=== PATIENT | male | born 1990 | race Caucasian/White ===

== ENCOUNTER 2024-01-30 21:50 | Emergency (ER) | payer OTHER, SELFPAY ==
[2024-01-30 21:54] VITALS: BP 118/77; PULSE 88; RESP 18; O2SAT 98
--- NOTE | 2024-01-30 22:13 | CRLHL7_ITS ---
For Patients: As a result of the Century Cures Act, medical imaging exams and procedure reports are released immediately into your electronic medical record. You may view this report before your referring provider. If you have questions, please contact your health care provider. INDICATION: Left testicle pain. COMPARISON: None. TECHNIQUE: Dodge scale imaging was performed of the scrotum. Color Doppler and spectral Doppler analysis was performed of the testes. FINDINGS: Testes: The right testis measures 4.3 x 2.3 x 2.9 cm and the left testis measures 4.4 x 2.4 x 2.7 cm. The testes demonstrate presence of arterial and venous blood flow on color Doppler and spectral Doppler analysis. The testes have uniform echogenicity without evidence of a suspicious mass. There is increased blood flow to the left testis. Epididymis: The right epididymis appears normal. There is increased blood flow in the left epididymal body and tail. Other: Small left hydrocele. No significant varicocele. IMPRESSION: 1. Hypervascular left testis and epididymis compatible with epididymo-orchitis. 2. Small left hydrocele. Dictated by Maria D Vale MD @ 01/31/2024 12:53:06 AM (Electronically Signed)
--- NOTE | 2024-01-30 22:16 | ED_ITS ---
HPI - General Adult General Chief complaint: Groin Pain Stated complaint: testicular pain Time Seen by Provider: 01/30/24 21:51 History of Present Illness HPI narrative: 33-year-old male presents the emergency department after hours for evaluation of left testicular pain that has been present since awakening at 8:00 a.m. approximately 14 hours ago. No injury or trauma. Reports that he did have an injury about 2 years ago and he followed up in the clinic about a week after the injury and was told he likely had a torn epididymis. An ultrasound was ordered but since the patient's pain was improving and he had no significant worsening, he did not follow up and have the ultrasound performed. He has no difficulty urinating, denies any chance of STDs. Pain is achy in nature, worsening throughout the day as he stands. Denies any swelling, history of hernia or prior surgery. Has not tried any Tylenol or ibuprofen. Past medical history benign, no major long-term health problems. No long-term medications or allergies. ROS is notable for the genital symptoms as above. Denies urinary, GI, generalized, skin or other musculoskeletal changes. Related Data Previous Rx's ?Medication ?Instructions ?Recorded levofloxacin 500 mg tablet 500 mg PO HS 10 days #10 tabs 01/31/24 Allergies Allergy/AdvReac Type Severity Reaction Status Date / Time seasonal allergies Allergy Mild Uncoded 01/30/24 22:15 [facility] Medical History Acute Lyme disease ?A69.20 - Lyme disease, unspecified (ICD-10) Social History Smoking Status: Never smoker Second hand tobacco smoke exposure: No How often do you have a drink containing alcohol: never AUDIT-C Alcohol total score: 0 Non-prescribed substance use: denies use Little interest or pleasure in doing things: not at all Feeling down, depressed, or hopeless: not at all Exam Const: Vital Signs, click to edit/add: Vital Signs - 24 hr 01/30/24 21:54 01/30/24 22:22 01/31/24 00:04 Temperature 98.0 F 98.0 F Pulse Rate [Pulse Oximeter] 88 Respiratory Rate 18 Blood Pressure [Ri ght Upper Arm] 118/77 Pulse Oximetry 98 Oxygen Delivery Me thod Room Air 01/31/24 00:19 Temperature 98.0 F Pulse Rate [Pulse Oximeter] 84 Respiratory Rate 18 Blood Pressure [Ri t Upper Arm] 121/74 Pulse Oximetry 98 Oxygen Delivery Me thod Room Air Documenting provider has reviewed patient's vital signs: yes Common normals: no apparent distress and alert General appearance: cooperative and comfortable HENMT: Common normals: normocephalic and oropharynx normal Head and scalp: normocephalic Eye: Common normals: conjunctivae normal General eye: normal appearance of both eyes Conjunctiva: conjunctiva(e) normal Neck & C-Spine: General: normal visual inspection Resp: Common normals: normal respiratory effort Effort & inspection: able to speak in complete sentences : Other: Director Part offered, patient declines. Scrotum and penis appear grossly normal. Palpation of right testicle shows normal size, contour. Epididymis is mildly tender on that side and he is a bit squeamish on exam. No hernia, normal inguinal canal. Left side has mild tenderness to palpation of the testicle and more so the epididymis area. There is no significant swelling or deformity of the testicle. The epididymis area is slightly swollen and tender to the touch.. He does not tolerate inguinal exam but I do not appreciate any obvious hernia or swelling. Overlying skin of the scrotum is normal. Cremasteric reflex is normal and left testicle moves normally. Extremity: Common normals: normal to inspection Neuro: Sensorium/orientation: alert Speech: speech normal Motor exam: no movement abnormalities noted Psych: Common normals: speech normal Activity/motor behavior: appropriate eye contact Speech: normal speech Memory/cognition: memory grossly intact Insight: insight good Judgement: judgment good Skin: Common normals: no rashes or lesions noted General skin exam: no rashes or lesions noted Course Course ED Course: 33-year-old male with left testicular area pain, low suspicion for torsion, more likely epididymitis. urine infection, hernia cannot be excluded. Ultrasound recommended. Will give Tylenol 1000 mg p.o. x1 and await ultrasound findings. Reevaluation(s) Time of Reevaluation #1: 01:03 Reevaluation #1: It took quite a while to get our ultrasound results back. This showed a small hydrocele but also epididymal orchitis. Will start treatment with level flox acillin 1st dose here in the ED and then additional 10 day supply sent pharmacy. Counseled this is likely inflammatory and is probably related to his old injury. Typical alarm symptoms were reviewed. If not improving in 7 days, would recommend primary care follow-up and Urology referral. Tight-fitting underwear recommended, management for future episodes discussed as well. Vital Signs Vital signs: Initial Vital Signs Pulse Rate 88 01/30/24 21:54 Respiratory Rate 18 01/30/24 21:54 Blood Pressure 118/77 01/30/24 21:54 Blood Pressure Mean 90 01/30/24 21:54 Blood Pressure Position Sitting 01/30/24 21:54 Pulse Oximetry 98 01/30/24 21:54 Oxygen Delivery Method Room Air 01/30/24 21:54 Vital Signs Pulse Rate 88 01/30/24 21:54 Respiratory Rate 18 01/30/24 21:54 Blood Pressure 118/77 01/30/24 21:54 Pulse Oximetry 98 01/30/24 21:54 Oxygen Delivery Method Room Air 01/30/24 21:54 Temperature 98.0 F 01/31/24 00:19 Pulse Rate 84 01/31/24 00:19 Respiratory Rate 18 01/31/24 00:19 Blood Pressure 121/74 01/31/24 00:19 Pulse Oximetry 98 01/31/24 00:19 Oxygen Delivery Method Room Air 01/31/24 00:19 Medications Administered Medications: Generic Name Dose Route Start Last Admin Trade Name Freq PRN Reason Stop Dose Admin Levofloxacin 750 mg 01/31/24 00:54 01/31/24 01:00 Levofloxacin 750 Mg Tablet PO 01/31/24 00:55 750 mg ONCE ONE Administration Discontinued Medications Generic Name Dose Route Start Last Admin Trade Name Freq PRN Reason Stop Dose Admin Acetaminophen 1,000 mg 01/30/24 22:13 01/30/24 22:22 Acetaminophen 500 Mg Tablet PO 01/30/24 22:14 1,000 mg ONCE ONE Administration Medical Decision Making Lab Data Lab results reviewed: Yes I reviewed the patient's lab results Lab results narrative: Well-hydrated, urinalysis not suspicious for infection Labs: Lab Results 01/30/24 Range/Units 22:15 Urine Color Yellow (Yellow) Urine Appearance Clear (Clear) Urine pH 5.5 (5.0-8.5) Ur Specific Buckhorn <= 1.005 (1.000-1.030) Urine Protein Negative (Negative) Urine Glucose (UA) Negative (Negative) Urine Ketones Negative (Negative) Urine Blood Negative (Negative) Urine Nitrite Negative (Negative) Urine Bilirubin Negative (Negative) Urine Urobilinogen 0.2 (0.2-1.0) Ur Leukocyte Esterase Negative (Negative) Imaging Data Scrotal ultrasound: Attestation: I have reviewed the pertinent imaging results. Discharge Plan Discharge Clinical Impression: Acute epididymo-orchitis, Hydrocele Patient Disposition: Home, Self-Care Condition: Stable Instructions: Epididymo-Orchitis (ED) Additional Instructions: As we discussed, there are no signs of tumors or lack of blood flow to the testicles. This is good news. You do have a hydrocele which is a enlarged veins sac on top of the testicle. These are common after minor injuries like the 1 you described a couple of years ago. Unfortunately, they tend to recur. The increased pressure in the vein can back up and cause swelling and inflammation in the testicle which is what has happened tonight. As we discussed, there is no way to tell at this is infection or inflammation. Because of this, we do treat with antibiotics for 7-10 days. I recommend anti- inflammatory medicine like ibuprofen 600 mg every 6 hours as needed. He will let me know that this tends to upset your stomach too much. Taking those medications as certainly not a requirement but if the pain is bothersome, you ar e welcome to do so. Tylenol 1000 mg every 6 hours would not upset your stomach but it may not decrease the inflammation as readily as ibuprofen, Aleve or other NSAIDs would. If symptoms are not improving in a week, I would recommend you follow-up with your primary care provider and that they submit a referral to a urologist which is a specialist in this area. Prolonged standing, heat and small trauma scan increase the inflammation in the hydrocele, making the more likely to give you problems again in the future. If you do have frequent spells like this, surgery can sometimes be recommended to remove the hydrocele but is often not necessary. You may return to work as usual and have no restrictions at this time. supervisor cell operation your antibiotics and continue taking these at bedtime once daily until course of treatment is completed. Wearing tight-fitting underwear to support the scrotum can be helpful as well. Activity Level: No Restrictions Discharge Diet: Regular Prescriptions: New levofloxacin 500 mg tablet 500 mg PO HS 10 Days Qty: 10 0RF Follow Up/Referrals: Yannick Mijares MD [Primary Care Provider] - Stand Alone Forms: [employer] Info Instructions
[2024-01-30 22:21] LABS: Appearance Urine Clear (Clear); Bilirubin Urine Negative (Negative); Blood Urine Negative (Negative); Color Urine Yellow (Yellow); Glucose Urine Negative (Negative); Ketones Urine Negative (Negative); Leukocyte Esterase Urine Negative (Negative); Nitrite Urine Negative (Negative); Protein Urine Negative (Negative); Specific Gravity Urine <= 1.005 (1.000-1.030); Urobilinogen Urine 0.2 (0.2-1.0); pH Urine 5.5 (5.0-8.5)
[2024-01-30 22:22] VITALS: TEMP 36.7
[2024-01-30] MEDS: ACETAMINOPHEN 500 MG TABLET 1000 MG PO (22:22)
--- OUTSIDE RECORDS SUMMARY | 2024-01-30 23:23 | XMS_ITS | Clinical Summary ---
Author Organization [facility] Address [place], [place] [address] Care Team Providers Care Sailing Master Name Role Phone Saturnino Aguilar MD Primary Care Provider [phone] Allergies No known active allergies Medications Medication Sig Dispensed Refills Start Date End Date Status omeprazole (PRILOSEC) 20 mg capsuleIndications:G ERD (gastroesophageal reflux disease) Take 1 capsule by mouth once daily before a meal. 100 capsule 1 05/15/2012 Active Immunizations Name Administration Dates Next Due Meningococcal Vaccine (Menactra) 02/23/2005 Tdap 02/03/2005 Social History Tobacco Use Types Packs/Day Years Used Date Smoking Tobacco: Every Day Cigarettes Smokeless Tobacco: Former Chew Tobacco Cessation:Ready to Q uit: Yes; Counseling Given: Yes Comments:1/2 ppd or less per pt Alcohol Use Standard Drinks/Week Comments No 0 (1 standard drink = 0.6 oz pur e alcohol) Sex and Gender Information Value Date Recorded Sex Assigned at Not on file Gender Identity Not on file Sexual Orientation Not on file Obstetrics History Last Filed Vital Signs Vital Sign Reading Time Taken Comments Blood Pressure 139/90 01/03/2023 1:56 PM CDT Pulse 96 01/03/2023 1:56 PM CDT Temperature 37.3 ??C (99.1 ??F) 05/15/2012 11:[address] Respiratory Rate - - Oxygen Saturation 97% 01/03/2023 1:56 PM CDT Inhaled Oxygen Concentration - - Weight 108 kg (238 lb 3.2 oz) 01/03/2023 1:56 PM CDT Height - - Body Mass Index - - Plan of Treatment Upcoming Encounters Date Type Department Care Team (Late st Contact Info) Description 03/06/2024 2:45 PM CDT Office Visit [facility] [address] [place] [address] Cory Thompson, DPM [address] [place] [address] Health Maintenance Due Date Last Done Comments Depression screening for age 12+ 2004 HIV for age 15-65 02/09/2007 BMI (ht and wt on same day) for age 18+ 02/09/2010 Hepatitis C screening for ag e 18-79 02/09/2010 Tetanus booster 02/03/2015 02/03/2005 COVID-19 vaccine series ( season) 2023 03/15/2021 Influenza for age 9-49 03/02/2024 Tdap Completed 02/03/2005 Pneumococcal series for age 6-64 Aged Out No longer eligible based on patient's age to complete this topic Care Teams Sailing Master Relationship Specialty Start Date End Date Saturnino Aguilar MD [address] [place] [address] PCP - General 07/13/06
[2024-01-31 00:04] VITALS: TEMP 36.7
[2024-01-31 00:19] VITALS: BP 121/74; PULSE 84; RESP 18; TEMP 36.7; O2SAT 98
[2024-01-31] MEDS: levoFLOXacin 750 MG TABLET PO (01:00)
[2024-01-31 01:06] VITALS: BP 121/74; PULSE 84; RESP 18; TEMP 36.7
== END 2024-01-31 01:06 | disposition home or self-care (01) ==
PROVIDERS: Emergency Provider Family Medicine; PCP Family Medicine
DX: N45.3 Epididymo-orchitis (principal)
CPT/HCPCS: 76870; 81003; 93976; 99283; 99284; A9270

== ENCOUNTER 2024-03-12 19:53 | Emergency (ER) | payer OTHER, SELFPAY ==
[2024-03-12 20:05] VITALS: BP 146/80; PULSE 70; RESP 16; TEMP 37.3; O2SAT 97; BMI 33.0
--- NOTE | 2024-03-12 20:10 | CRLHL7_ITS ---
For Patients: As a result of the Cures Act, medical imaging exams and procedure reports are released immediately into your electronic medical record. You may view this report before your referring provider. If you have questions, please contact your health care provider. Indication: Trauma. Technique: Left hand 3 views. Comparison: None. Findings/Impression: Bones: Minimally distracted fracture in the anterior base of the left 4th finger middle phalanx visualized on the lateral image. No other osseous abnormality. Joint spaces: Unremarkable. Soft tissues: Moderate swelling. Dictated by Tyree aSrgent MD @ 03/12/2024 9:15:12 PM (Electronically Signed)
--- NOTE | 2024-03-12 21:18 | ED_ITS ---
HPI - Extremity Injury (Upper) General Time Seen by Provider: 21:19 Date Seen: 03/12/24 Chief Complaint: Extremity Pain/Injury, Upper Stated Complaint: possible broken finger, L hand Time Seen by Provider: 03/12/24 20:57 Source: patient and RN notes reviewed Mode of arrival: ambulatory Limitations: no limitations History of Present Illness HPI narrative: Patient is coming in with left 4th finger pain along the middle of the finger. He accidentally hit the chair at the dinner table. He was going to swat the dog away that was sniffing the kids dinner plates. He accidentally caught the chair with his finger. He did remove his ring. There is swelling, it is painful but denies any loss of sensation. 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 MD complaint: injury to: left and finger (Ring finger) Related Data Home Medications ?Medication ?Instructions ?Recorded ?Confirmed No Known Home Medications 03/12/24 03/12/24 Allergies Allergy/AdvReac Type Severity Reaction Status Date / Time seasonal allergies Allergy Mild Uncoded 01/30/24 22:15 Review of Systems Narrative: As per HPI. PFSH PFS Medical History Acute Lyme disease ?A69.20 - Lyme disease, unspecified (ICD-10) Social History Smoking Status: Never smoker Second hand tobacco smoke exposure: No How often do you have a drink containing alcohol: never AUDIT-C Alcohol total score: 0 Non-prescribed substance use: denies use Little interest or pleasure in doing things: not at all Feeling down, depressed, or hopeless: not at all Exam Const: Vital Signs, click to edit/add: Vital Signs - 24 hr 03/12/24 20:05 Temperature 99.2 F Pulse Rate [Pulse Oximeter] 70 Respiratory Rate 16 Blood Pressure [Ri ght Upper Arm] 146/80 H Pulse Oximetry 97 Oxygen Delivery Me thod Room Air Patient is alert, interactive, no apparent distress. He was seen in triage as his x-ray that was ordered by nursing staff is back. His left 4th finger is swollen in the middle portion, still is able to mobilize but has limits of flexion due to swelling and pain, is in full extension baseline. Distal neurovascular is intact. There is no open wound. His and swelling center around the proximal interphalangeal joint. Documenting provider has reviewed patient's vital signs: yes Course Course ED Course: Nursing staff ordered an x-ray on this patient during triage process which was appropriate. Due to the volume in the acuity in the ER, this did facilitate patient not waiting as long. I am able to review with him that there is a proximal middle phalanx fracture. Looks to be along the palmar surface on my visualization. Patient was placed in a 4-1/2 inch foam curved finger splint. This was taped on. Vital Signs Vital signs: Initial Vital Signs Temperature 99.2 F 03/12/24 20:05 Temperature Source Temporal Artery Scan 03/12/24 20:05 Pulse Rate 70 03/12/24 20:05 Respiratory Rate 16 03/12/24 20:05 Blood Pressure 146/80 H 03/12/24 20:05 Blood Pressure Mean 102 03/12/24 20:05 Blood Pressure Position Sitting 03/12/24 20:05 Pulse Oximetry 97 03/12/24 20:05 Oxygen Delivery Method Room Air 03/12/24 20:05 Vital Signs Temperature 99.2 F 03/12/24 20:05 Pulse Rate 70 03/12/24 20:05 Respiratory Rate 16 03/12/24 20:05 Blood Pressure 146/80 H 03/12/24 20:05 Pulse Oximetry 97 03/12/24 20:05 Oxygen Delivery Method Room Air 03/12/24 20:05 Temperature 99.2 F 03/12/24 20:05 Pulse Rate 70 03/12/24 20:05 Respiratory Rate 16 03/12/24 20:05 Blood Pressure 146/80 H 03/12/24 20:05 Pulse Oximetry 97 03/12/24 20:05 Oxygen Delivery Method Room Air 03/12/24 20:05 MDM - Extremity Injury (Upper) Imaging Data XR left hand: Attestation: I have reviewed the pertinent imaging results. My impression: Do see a small avulsion along the proximal middle phalanx, slight minimal displacement of this fragment. Radiologist's impression: Patient: IVIS HAIDER Facility:?[facility] Patient ID:?[id number] Site Patient ID:?[id number]. Site :?[id number] Study:?XRay-Extremity Left HAND 3V-03/12/2024 8:32:06 PM Ordering Physician:?PROVIDER TEMP Final Report: Indication: Trauma. Technique: Left hand 3 views. Comparison: None. Findings/Impression: Bones: Minimally distracted fracture in the anterior base of the left 4th finger middle phalanx visualized on the lateral image. No other osseous abnormality. Joint spaces: Unremarkable. Soft tissues: Moderate swelling. Dictated by Tyree Sargent MD @ 03/12/2024 9:15:12 PM (Electronic Signature) Discharge Plan Discharge Clinical Impression: Finger fracture, left Patient Disposition: Home, Self-Care Condition: Stable Instructions: Finger Fracture (ED) Additional Instructions: Immobilize finger with the foam splint until further advised by Orthopedics. Can ice and elevate this finger to help decrease pain and swelling. Tylenol and ibuprofen per bottle directions as needed for pain control. Phone number to get scheduled for orthopedics is [phone]. Please call tomorrow to get scheduled for future appointment, they will help you get scheduled at the appropriate time interval. Prescriptions: No Action No Known Home Medications Follow Up/Referrals: Yannick Mijares MD [Primary Care Provider] - Stand Alone Forms: [employer] Info Instructions
--- OUTSIDE RECORDS SUMMARY | 2024-03-12 21:30 | XMS_ITS | Clinical Summary ---
Author Organization [facility] Address [place], [place] [address] Care Team Providers Care Emd Special Education Teacher Name Role Phone Saturnino Aguilar MD Primary Care Provider [phone]- [phone] Allergies No known active allergies Medications Medication Sig Dispensed Refills Start Date End Date Status omeprazole (PRILOSEC) 20 mg capsuleIndications:G ERD (gastroesophageal reflux disease) Take 1 capsule by mouth once daily before a meal. 100 capsule 1 05/15/2012 Active Encounters Date Type Department Care Team Description 03/06/2024 2:45 PM CDT Office Visit [facility] [address] [phone] Cory Thompson, DPRambo Consult (Right great toenail and 2nd toenail deformity) 03/06/2024 Travel from Last 3 Months Immunizations Name Administration Dates Next Due Meningococcal [...] Pressure 139/90 01/03/2023 1:56 PM CDT Pulse 85 03/06/2024 2:36 PM CDT Temperature 37.3 ??C (99.1 ??F) 05/15/2012 1 1:05 AM DIRECTOR CHECK Respiratory Rate - - Oxygen Saturation 95% 03/06/2024 2:36 PM CDT Inhaled Oxygen Concentration - - Weight 104.6 kg (230 lb 11.2 oz) 03/06/2024 2:36 PM CDT Height - - Body Mass Index - - Plan of Treatment Health Maintenance Due Date Last Done Comments Depression screening for age 12+ 2004 HIV for age 15-65 02/09/2007 BMI (ht and wt on same day) for age 18+ 02/09/2010 Hepatitis C screening for ag e 18-79 02/09/2010 Tetanus booster 02/03/2015 02/03/2005 COVID-19 vaccine series ( season) 2024 03/15/2021 Influenza for age 9-49 03/02/2024 Tdap Completed 02/03/2005 Pneumococcal series for age 6-64 Aged Out No longer eligible based on patient's age to complete this topic Care Teams Emd Special Education Teacher Relationship Specialty Start Date End Date Saturnino Aguilar MD [address] [place] [address] PCP - General 07/13/06
== END 2024-03-12 21:42 | disposition home or self-care (01) ==
PROVIDERS: Emergency Provider Family Medicine; PCP Family Medicine
DX: S62.644A Nondisplaced fracture of proximal phalanx of right ring finger, initial encounter for closed fracture (principal); W22.8XXA Striking against or struck by other objects, initial encounter
CPT/HCPCS: 29130; 73130; 99282; 99283